=== PATIENT | male | born 1985 | race Two or more races ===

== ENCOUNTER 2019-10-20 14:47 | Emergency (ER) | payer OTHER ==
[~2019-10-20] VITALS: Ht 175.3 cm; Wt 100.0 kg
[2019-10-20] MEDS ORDERED: GABA-533 PO (15:03)
[2019-10-20] MEDS ORDERED: PROPARACAINE HCL 0.5% 15 ML OPHTHALMIC SOLUTION OD ONE (15:15)
[2019-10-20] MEDS ORDERED: FLUORESCEIN SODIUM 1 MG STRIP OD ONE (15:15)
[2019-10-20] MEDS ORDERED: GABAPENTIN 400 MG CAPSULE PO ONE (16:00)
[2019-10-20] MEDS ORDERED: OXcarbazepine 300 MG TABLET PO ONE (16:00)
[2019-10-20] MEDS ORDERED: PERTUSS(ACELL),DIPH,TET VAC/PF 0.5 ML VIAL IM ONE (16:15)
[2019-10-20 17:00] VITALS: BP 121/78
== END 2019-10-20 17:48 | disposition home or self-care (01) ==
LOC: EMS 14:51
DX: S02.40FA Zygomatic fracture, left side, initial encounter for closed fracture (principal); S00.81XA Abrasion of other part of head, initial encounter; H11.421 Conjunctival edema, right eye; F17.210 Nicotine dependence, cigarettes, uncomplicated; F15.90 Other stimulant use, unspecified, uncomplicated; Z79.899 Other long term (current) drug therapy; Y04.0XXA Assault by unarmed brawl or fight, initial encounter; Y93.89 Activity, other specified; Y92.89 Other specified places as the place of occurrence of the external cause; Y99.8 Other external cause status
CPT/HCPCS: 70450; 70486; 90471; 90715